=== PATIENT | male | born 1955 | race Two or more races ===

== ENCOUNTER 2022-06-13 14:43 | Emergency (ER) | payer BC ==
[~2022-06-13] VITALS: Ht 172.7 cm; Wt 76.2 kg
[2022-06-13 14:45] VITALS: BP_SYST 150
[2022-06-13] MEDS ORDERED: ASPIRIN 81 MG TAB.CHEW PO ONE (15:00)
--- NOTE | 2022-06-13 17:40 | NUR ---
Patient to ER bed 1 to gown for evaluation. Side rails up. Report given to Felicia ODOM.
--- NOTE | 2022-06-13 17:45 | NUR ---
Pt coming from home ambulatory with steady gait accompanied by . Pt is A&Ox4. Skin intact. VSS. Pt c/o bilateral hip pain 8/10 non-radiating and is constant. No trauma. Pt states 3 hours ago he started to have chest pain first then it went away and then he started to have pain in the abdomen and then it went away and now currently he has pain bilateral hip pain. NKA. Has hx of DM, HTN, and Hyperlipidemia. No chest pain and no sob. Denies n/v. Bed in lowest position.
--- NOTE | 2022-06-13 17:46 | NUR ---
ER at bedside examining patient.
--- NOTE | 2022-06-13 17:57 | NUR ---
Urine collected and sent to lab.
[2022-06-13] MEDS ORDERED: ASPIRIN 81 MG TABLET(ECOTRIN) ONE (18:03)
--- NOTE | 2022-06-13 18:05 | NUR ---
security technician at bedside.
[2022-06-13 18:12] LABS: BILIRUBIN,URINE NEGATIVE (NEGATIVE); BLOOD, URINE NEGATIVE (NEGATIVE); CLARITY/URINE CLEAR (CLEAR); COLOR,URINE YELLOW (YELLOW); GLUCOSE,URINE NEGATIVE (NEGATIVE); KETONES,URINE NEGATIVE (NEGATIVE); LEUKOCYTE ESTERASE ,URINE NEGATIVE (NEGATIVE); NITRITE, URINE NEGATIVE (NEGATIVE); PH,URINE 5.5 (5.0-8.0); PROTEIN URINE TRACE (NEGATIVE); UROBILINOGEN,URINE 0.2 (0.2-1.0)
[2022-06-13 18:14] VITALS: BP_SYST 159
[2022-06-13 18:22] LABS: BASOPHILS % (AUTO) 0.2 % (0.0-2.0); EOSINOPHILS # (AUTO) 0.2 K/uL (0.0-0.4); HEMOGLOBIN 11.1 g/dL (14.0-18.0); LYMPHOCYTES % (AUTO) 30.3 % (20.5-51.5); MEAN CORPUSCULAR HEMOGLOBIN 31 pg (27-31); MEAN CORPUSCULAR HGB CONC 36 % (32-36); MEAN CORPUSCULAR VOLUME 86 fL (79.0-98.0); MONOCYTES # (AUTO) 0.5 K/uL (0.0-1.0); MONOCYTES % (AUTO) 8.4 % (1.7-9.3); NEUTROPHILS # (AUTO) 3.8 K/uL (1.8-7.7); NEUTROPHILS % (AUTO) 58.1 % (40.0-70.0); PLATELET COUNT (AUTO) 196 K/uL (130-430); RED BLOOD CELL COUNT(AUTO) 3.61 MIL/uL (4.2-6.2); RED CELL DISTRIBUTION WIDTH 13.8 % (9.0-15.0); WHITE BLOOD COUNT (AUTO) 6.5 K/uL (4.8-10.8)
[2022-06-13 18:26] LABS: CALCIUM 8.2 mg/dL (8.4-11.0); CREATININE 1.32 mg/dL (0.55-1.30)
[2022-06-13 18:32] LABS: ALBUMIN 3.5 g/dL (3.4-4.8); TOTAL BILIRUBIN 0.7 mg/dL (0.0-1.0)
--- NOTE | 2022-06-13 19:19 | NUR ---
Report given to Dimple ODOM.
--- NOTE | 2022-06-13 19:20 | NUR ---
REPORT FROM LEI GAYTAN. PT PENDING SECOND TROPONIN BLODD DRAW. AT BEDSIDE, C/O BILAT HIP PAIN 07/11. DR. LAZAR MADE AWARE.
[2022-06-13] MEDS ORDERED: MORPHINE 2 MG/ML INJ. SYRINGE IVP ONE (20:00)
[2022-06-13 21:21] VITALS: BP_SYST 150
--- NOTE | 2022-06-13 21:23 | NUR ---
PT D/C TO HOME WITH . TO LOBBY AMB WITH ALL PAPERWORK IN HAND. PAIN LEVAL 02/08 FOR BILAT HIP PAIN. AMB WITH STEADY AND EVEN GAIT. "FEELS BETTER"
== END 2022-06-13 21:21 | disposition home or self-care (01) ==
LOC: SED 14:43
DX: R07.89 Other chest pain (principal); R39.11 Hesitancy of micturition; N17.9 Acute kidney failure, unspecified; I10 Essential (primary) hypertension; E11.9 Type 2 diabetes mellitus without complications
CPT/HCPCS: 99285; 96374; 71045; 80053; 82550; 83690; 85025; 85610; 85730; 87086; 84484; 36415; 93005; 81003; J2270